=== PATIENT | male | born 1980 | race American Indian/Alaskan Native ===

== ENCOUNTER 2018-03-06 03:58 | Emergency (ER) | payer SELFPAY ==
[2018-03-06 04:06] VITALS: BP 142/85
[2018-03-06] MEDS ORDERED: NORCO 7.5/325 ONE (04:15)
[2018-03-06] MEDS ORDERED: NORCO 7.5/325 PO ONE (04:20)
[2018-03-06] MEDS ORDERED: BOOSTRIX IM ONE (04:25)
[2018-03-06] MEDS ORDERED: THERMAZENE 50 GRAM TP ONE (04:25)
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
[2018-03-06] MEDS ORDERED: ANTIBIOTIC OINT TP ONE (05:00)
== END 2018-03-06 05:59 | disposition home or self-care (01) ==
LOC: ED 03:58
DX: T22.111A Burn of first degree of right forearm, initial encounter (principal); J45.909 Unspecified asthma, uncomplicated; Z87.891 Personal history of nicotine dependence; Z88.1 Allergy status to other antibiotic agents; Z91.013 Allergy to seafood; Z91.041 Radiographic dye allergy status; X12.XXXA Contact with other hot fluids, initial encounter; Y93.89 Activity, other specified; Y99.0 Civilian activity done for income or pay; Y92.69 Other specified industrial and construction area as the place of occurrence of the external cause
CPT/HCPCS: 90471; 90715

== ENCOUNTER 2021-05-22 08:11 | Emergency (ER) | payer MEDICAID, OTHER ==
[2021-05-22 08:18] VITALS: BP 132/85
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
[2021-05-22] MEDS ORDERED: ACETAMINOPHEN 500 MG TAB PO STA (10:32)
[2021-05-22] MEDS ORDERED: IBUPROFEN 800 MG TAB PO STA (10:32)
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
== END 2021-05-22 12:07 | disposition home or self-care (01) ==
LOC: ED 08:11
DX: S19.9XXA Unspecified injury of neck, initial encounter (principal); M54.6 Pain in thoracic spine; J45.909 Unspecified asthma, uncomplicated; Z87.891 Personal history of nicotine dependence; Z88.6 Allergy status to analgesic agent; Z91.013 Allergy to seafood; Z79.899 Other long term (current) drug therapy; V89.2XXA Person injured in unspecified motor-vehicle accident, traffic, initial encounter; Y93.89 Activity, other specified; Y92.488 Other paved roadways as the place of occurrence of the external cause; Y99.8 Other external cause status
CPT/HCPCS: 72040; 99283